=== PATIENT | male | born 1935 | race Caucasian/White ===

== ENCOUNTER 2017-08-19 16:48 | Observation (INO) ==
[2017-08-20] MEDS ORDERED: Famotidine PF Inj 20 MG/2 ML Vial ONE (23:18)
[2017-08-21] MEDS ORDERED: Benzonatate 100 MG Capsule PO PRN (03:06)
[2017-08-21] MEDS ORDERED: Naloxone Inj 0.4 MG/ML Vial IV.PUSH PRN (03:11)
--- NOTE | 2017-08-21 09:01 | P.PN ---
Subjective Interval history: Follow up for hematemesis, bronchitis. The patient is quite confused this morning. He states he doesn't know why he is still here. Had thorough discussion regarding his hematemesis and hemoccult positive stools, patient then remembers he vomited blood. He denies any further hematemesis. He is unable to recall his last BM. Denies any abdominal pain. Denies any lightheadedness/dizziness, chest pain, shortness of breath. Physical Exam Vital signs: Vital Signs 08/21/17 04:06 08/21/17 07:58 Temperature 97.9 F 97.6 F Pulse Rate 70 76 Respiratory Rate 16 16 Blood Pressure 168/73 H 156/77 H Pulse Oximetry 98 Intake & Output 08/20/17 08/21/17 08/21/17 18:59 06:59 18:59 Output Total 1200 / 1200 Balance -1200 / -1200 Weight 80 kg Output: Urine 1200 / 1200 Other: # Voids 3 Narrative: GENERAL: Well-nourished, well-developed pleasant elderly male patient in NAD. Confused. Coughing throughout exam. SKIN: Warm and dry. No rash. HEENT: Normocephalic. Atraumatic. Pupils equal and round. Mucous membranes pink and moist. CARDIOVASCULAR: Regular rate and rhythm. No murmur appreciated. RESPIRATORY: No accessory muscle use. Clear to auscultation. Breath sounds equal bilaterally. GASTROINTESTINAL: Abdomen soft, non-tender, nondistended. Normoactive bowel sounds x4. MUSCULOSKELETAL: No obvious deformities. Extremities without clubbing, cyanosis , or edema. NEUROLOGICAL: Awake and alert. No obvious cranial nerve deficits. Motor grossly within normal limits. Moving all extremities spontaneously. Normal speech. PSYCHIATRIC: Appropriate mood and affect; insight and judgment limited. Results - Labs CBC & Chem 7: 08/20/17 12:30 08/20/17 06:57 Labs: Laboratory Results - last 24 hr 08/19/17 08/19/17 08/19/17 13:40 13:40 14:30 WBC 9.7 RBC 5.47 Hgb 15.9 Hct 46.8 MCV 85.6 MCH 29.0 MCHC 33.9 RDW 14.4 Plt Count 177 MPV 8.1 Neut % (Auto) 83.3 H Lymph % (Auto) 8.5 L [place] % (Auto) 7.6 Eos % (Auto) 0.3 Baso % (Auto) 0.3 Neut # (Auto) 8.1 H Lymph # (Auto) 0.8 L [place] # (Auto) 0.7 Eos # (Auto) 0.0 Baso # (Auto) 0.0 CBC Comment DIFF FINAL Sodium 141 Potassium 3.8 Chloride 105 Carbon Dioxide 27.4 Anion Gap 9 BUN 29 H Creatinine 1.08 Estimated GFR 65 L Random Glucose 104 Calcium 9.0 Total Bilirubin 0.8 AST 15 ALT 20 Alkaline Phosphatase 60 Total Protein 7.5 Albumin 3.7 Lipase 167 Urine Color Andie Urine Turbidity HAZY H Urine pH 5.0 Ur Specific [place] 1.026 Urine Protein 30 H Urine Glucose (UA) 50 Urine Ketones TRACE H Urine Occult Blood SMALL H Urine Nitrite NEG Urine Bilirubin NEG Urine Urobilinogen 4.0 OR GREATER H Ur Leukocyte Esterase NEG Urine RBC 2 Urine WBC 2 Ur Squamous Epith Cells <1 Ur Transition Epith Cell <1 Calcium Oxalate Crystal OCC H Micro UA Comment CULT NOT INDICATED 08/19/17 08/20/17 08/20/17 21:05 06:57 06:57 WBC 10.3 RBC 5.17 Hgb 14.9 14.6 Hct 45.0 43.9 MCV 84.8 MCH 28.2 MCHC 33.2 RDW 14.3 Plt Count 154 MPV 7.9 Neut % (Auto) 79.7 H Lymph % (Auto) 11.9 Brule % (Auto) 7.2 Eos % (Auto) 0.8 Baso % (Auto) 0.4 Neut # (Auto) 8.2 H Lymph # (Auto) 1.2 Brule # (Auto) 0.7 Eos # (Auto) 0.1 Baso # (Auto) 0.0 CBC Comment DIFF FINAL Sodium 141 Potassium 4.1 Chloride 110 H Carbon Dioxide 22.9 Anion Gap 8 BUN 20 H Creatinine 0.73 Estimated GFR 103 Random Glucose 93 Calcium 8.0 L D Total Bilirubin AST ALT Alkaline Phosphatase Total Protein Albumin Lipase Urine Color Urine Turbidity Urine pH Ur Specific [place] Urine Protein Urine Glucose (UA) Urine Ketones Urine Occult Blood Urine Nitrite Urine Bilirubin Urine Urobilinogen Ur Leukocyte Esterase Urine RBC Urine WBC Ur Squamous Epith Cells Ur Transition Epith Cell Calcium Oxalate Crystal Micro UA Comment 08/20/17 12:30 WBC RBC Hgb 15.2 Hct 45.3 MCV MCH MCHC RDW Plt Count MPV Neut % (Auto) Lymph % (Auto) Brule % (Auto) Eos % (Auto) Baso % (Auto) Neut # (Auto) Lymph # (Auto) Brule # (Auto) Eos # (Auto) Baso # (Auto) CBC Comment Sodium Potassium Chloride Carbon Dioxide Anion Gap BUN Creatinine Estimated GFR Random Glucose Calcium Total Bilirubin AST ALT Alkaline Phosphatase Total Protein Albumin Lipase Urine Color Urine Turbidity Urine pH Ur Specific [place]ha Urine Protein Urine Glucose (UA) Urine Ketones Urine Occult Blood Urine Nitrite Urine Bilirubin Urine Urobilinogen Ur Leukocyte Esterase Urine RBC Urine WBC Ur Squamous Epith Cells Ur Transition Epith Cell Calcium Oxalate Crystal Micro UA Comment - Imaging Imaging: Last Impressions Chest X-Ray 08/19/17 1336 Signed Impressions: CONCLUSION: Minimal parental changes laterally left lung nonspecific. Early Inflammatory pr ocess would be a consideration. Assessment and Plan - Plan 81-year-old male with history of Alzheimer's dementia, presents with hematemesis 2 Hematemesis: Possible GI bleed. History of esophageal strictures. -Monitor serial H&H, hemoglobin stable at 14.6 -Given IV Pepcid bid -Stool hemoccult positive -Consult GI, plan for EGD on Tuesday 08/22 Acute bronchitis: Patient with ongoing cough -CXR reviewed, shows some inflammatory changes at the left lung -Give course of antibiotics with Levaquin 500mg daily x7days given ongoing cough and possibly early pneumonia on CXR -outpatient f/up with Dr. Mckeon -Yumiko Riley prn -cough improving Alzheimer's Dementia: chronic -continue patient's Aricept DVT Prophylaxis: teds/SCDs; avoid chemoprophylaxis with hematemesis Discharge Planning: Discharge pending EGD tomorrow.
[2017-08-21] MEDS: Pantoprazole Sodium 20 MG DR Tablet PO SCH (09:48)
[2017-08-21] MEDS: amLODIPine 5 MG Tablet PO SCH (09:48)
[2017-08-21] MEDS: levoFLOXacin 500 MG Tablet PO SCH (09:48)
[2017-08-21] MEDS: Polyethylene Glycol 3350 17 GM Packet PO SCH (09:49)
--- NOTE | 2017-08-21 15:09 | P.PNGI ---
Subjective Interval history: Patient is resting in his room but gets up at times ambulating Some altered mental status which seems to be his norm secondary to dementia No nausea vomiting diarrhea or abdominal pain Current hemoglobin 15.2 <Caren Fish - Last Filed: 08/21/17 15:09> Physical Exam Vital signs: Vital Signs 08/21/17 04:06 08/21/17 07:58 08/21/17 12:00 Temperature 97.9 F 97.6 F 97.4 F L Pulse Rate 70 76 72 Respiratory Rate 16 16 12 Blood Pressure 168/73 H 156/77 H 174/79 H Pulse Oximetry 98 98 Intake & Output 08/20/17 08/21/17 08/21/17 18:59 06:59 18:59 Output Total 1200 / 1200 Balance -1200 / -1200 Weight 80 kg Output: Urine 1200 / 1200 Other: # Voids 3 - Constitutional no acute distress - Routine HEENT Exam Head: Present: normocephalic, atraumatic Eye: Present: EOMI ENT: Present: mucous membranes moist - Routine Neck Exam Present: supple - Routine Respiratory Exam Present: accessory muscle use (No obvious rhonchi or wheezing) - Routine Cardiovascular Exam Present: RRR - Routine Abdominal Exam Present: soft, normoactive bowel sounds - Routine Extremities Exam Present: full ROM (Slim body build ambulates without any issues) - Routine Skin Exam Present: intact, dry (Mild paleness) - Routine Neurological Exam Present: alert (Awake answers simple questions but not sure where he is or current situation) - Detailed Neurological Exam: Coma Scale Eye Opening: Spontaneous Verbal Response: Confused (Non-anxious) <Caren Fish - Last Filed: 08/21/17 15:09> Vital signs: Vital Signs 08/21/17 04:06 08/21/17 07:58 08/21/17 12:00 Temperature 97.9 F 97.6 F 97.4 F L Pulse Rate 70 76 72 Respiratory Rate 16 16 12 Blood Pressure 168/73 H 156/77 H 174/79 H Pulse Oximetry 98 98 Intake & Output 08/20/17 08/21/17 08/21/17 18:59 06:59 18:59 Output Total 1200 / 1200 Balance -1200 / -1200 Weight 80 kg Output: Urine 1200 / 1200 Other: # Voids 3 <Debo Elizalde - Last Filed: 08/21/17 16:56> Results - Labs CBC & Chem 7: 08/20/17 12:30 08/20/17 06:57 Labs: Laboratory Results - last 24 hr 08/19/17 08/19/17 08/19/17 13:40 13:40 14:30 WBC 9.7 RBC 5.47 Hgb 15.9 Hct 46.8 MCV 85.6 MCH 29.0 MCHC 33.9 RDW 14.4 Plt Count 177 MPV 8.1 Neut % (Auto) 83.3 H Lymph % (Auto) 8.5 L [place] % (Auto) 7.6 Eos % (Auto) 0.3 Baso % (Auto) 0.3 Neut # (Auto) 8.1 H Lymph # (Auto) 0.8 L [place] # (Auto) 0.7 Eos # (Auto) 0.0 Baso # (Auto) 0.0 CBC Comment DIFF FINAL Sodium 141 Potassium 3.8 Chloride 105 Carbon Dioxide 27.4 Anion Gap 9 BUN 29 H Creatinine 1.08 Estimated GFR 65 L Random Glucose 104 Calcium 9.0 Total Bilirubin 0.8 AST 15 ALT 20 Alkaline Phosphatase 60 Total Protein 7.5 Albumin 3.7 Lipase 167 Urine Color Andie Urine Turbidity HAZY H Urine pH 5.0 Ur Specific [place] 1.026 Urine Protein 30 H Urine Glucose (UA) 50 Urine Ketones TRACE H Urine Occult Blood SMALL H Urine Nitrite NEG Urine Bilirubin NEG Urine Urobilinogen 4.0 OR GREATER H Ur Leukocyte Esterase NEG Urine RBC 2 Urine WBC 2 Ur Squamous Epith Cells <1 Ur Transition Epith Cell <1 Calcium Oxalate Crystal OCC H Micro UA Comment CULT NOT INDICATED 08/19/17 08/20/17 08/20/17 21:05 06:57 06:57 WBC 10.3 RBC 5.17 Hgb 14.9 14.6 Hct 45.0 43.9 MCV 84.8 MCH 28.2 MCHC 33.2 RDW 14.3 Plt Count 154 MPV 7.9 Neut % (Auto) 79.7 H Lymph % (Auto) 11.9 [place] % (Auto) 7.2 Eos % (Auto) 0.8 Baso % (Auto) 0.4 Neut # (Auto) 8.2 H Lymph # (Auto) 1.2 [place] # (Auto) 0.7 Eos # (Auto) 0.1 Baso # (Auto) 0.0 CBC Comment DIFF FINAL Sodium 141 Potassium 4.1 Chloride 110 H Carbon Dioxide 22.9 Anion Gap 8 BUN 20 H Creatinine 0.73 Estimated GFR 103 Random Glucose 93 Calcium 8.0 L D Total Bilirubin AST ALT Alkaline Phosphatase Total Protein Albumin Lipase Urine Color Urine Turbidity Urine pH Ur Specific [place] Urine Protein Urine Glucose (UA) Urine Ketones Urine Occult Blood Urine Nitrite Urine Bilirubin Urine Urobilinogen Ur Leukocyte Esterase Urine RBC Urine WBC Ur Squamous Epith Cells Ur Transition Epith Cell Calcium Oxalate Crystal Micro UA Comment 08/20/17 12:30 WBC RBC Hgb 15.2 Hct 45.3 MCV MCH MCHC RDW Plt Count MPV Neut % (Auto) Lymph % (Auto) [place] % (Auto) Eos % (Auto) Baso % (Auto) Neut # (Auto) Lymph # (Auto) [place] # (Auto) Eos # (Auto) Baso # (Auto) CBC Comment Sodium Potassium Chloride Carbon Dioxide Anion Gap BUN Creatinine Estimated GFR Random Glucose Calcium Total Bilirubin AST ALT Alkaline Phosphatase Total Protein Albumin Lipase Urine Color Urine Turbidity Urine pH Ur Specific [place] Urine Protein Urine Glucose (UA) Urine Ketones Urine Occult Blood Urine Nitrite Urine Bilirubin Urine Urobilinogen Ur Leukocyte Esterase Urine RBC Urine WBC Ur Squamous Epith Cells Ur Transition Epith Cell Calcium Oxalate Crystal Micro UA Comment <Caren Fish - Last Filed: 08/21/17 15:09> - Labs CBC & Chem 7: 08/20/17 12:30 08/20/17 06:57 Labs: Laboratory Results - last 24 hr 08/19/17 08/19/17 08/19/17 13:40 13:40 14:30 WBC 9.7 RBC 5.47 Hgb 15.9 Hct 46.8 MCV 85.6 MCH 29.0 MCHC 33.9 RDW 14.4 Plt Count 177 MPV 8.1 Neut % (Auto) 83.3 H Lymph % (Auto) 8.5 L [place] % (Auto) 7.6 Eos % (Auto) 0.3 Baso % (Auto) 0.3 Neut # (Auto) 8.1 H Lymph # (Auto) 0.8 L [place] # (Auto) 0.7 Eos # (Auto) 0.0 Baso # (Auto) 0.0 CBC Comment DIFF FINAL Sodium 141 Potassium 3.8 Chloride 105 Carbon Dioxide 27.4 Anion Gap 9 BUN 29 H Creatinine 1.08 Estimated GFR 65 L Random Glucose 104 Calcium 9.0 Total Bilirubin 0.8 AST 15 ALT 20 Alkaline Phosphatase 60 Total Protein 7.5 Albumin 3.7 Lipase 167 Urine Color Andie Urine Turbidity HAZY H Urine pH 5.0 Ur Specific [place] 1.026 Urine Protein 30 H Urine Glucose (UA) 50 Urine Ketones TRACE H Urine Occult Blood SMALL H Urine Nitrite NEG Urine Bilirubin NEG Urine Urobilinogen 4.0 OR GREATER H Ur Leukocyte Esterase NEG Urine RBC 2 Urine WBC 2 Ur Squamous Epith Cells <1 Ur Transition Epith Cell <1 Calcium Oxalate Crystal OCC H Micro UA Comment CULT NOT INDICATED 08/19/17 08/20/17 08/20/17 21:05 06:57 06:57 WBC 10.3 RBC 5.17 Hgb 14.9 14.6 Hct 45.0 43.9 MCV 84.8 MCH 28.2 MCHC 33.2 RDW 14.3 Plt Count 154 MPV 7.9 Neut % (Auto) 79.7 H Lymph % (Auto) 11.9 [place] % (Auto) 7.2 Eos % (Auto) 0.8 Baso % (Auto) 0.4 Neut # (Auto) 8.2 H Lymph # (Auto) 1.2 [place] # (Auto) 0.7 Eos # (Auto) 0.1 Baso # (Auto) 0.0 CBC Comment DIFF FINAL Sodium 141 Potassium 4.1 Chloride 110 H Carbon Dioxide 22.9 Anion Gap 8 BUN 20 H Creatinine 0.73 Estimated GFR 103 Random Glucose 93 Calcium 8.0 L D Total Bilirubin AST ALT Alkaline Phosphatase Total Protein Albumin Lipase Urine Color Urine Turbidity Urine pH Ur Specific [place] Urine Protein Urine Glucose (UA) Urine Ketones Urine Occult Blood Urine Nitrite Urine Bilirubin Urine Urobilinogen Ur Leukocyte Esterase Urine RBC Urine WBC Ur Squamous Epith Cells Ur Transition Epith Cell Calcium Oxalate Crystal Micro UA Comment 08/20/17 12:30 WBC RBC Hgb 15.2 Hct 45.3 MCV MCH MCHC RDW Plt Count MPV Neut % (Auto) Lymph % (Auto) [place] % (Auto) Eos % (Auto) Baso % (Auto) Neut # (Auto) Lymph # (Auto) [place] # (Auto) Eos # (Auto) Baso # (Auto) CBC Comment Sodium Potassium Chloride Carbon Dioxide Anion Gap BUN Creatinine Estimated GFR Random Glucose Calcium Total Bilirubin AST ALT Alkaline Phosphatase Total Protein Albumin Lipase Urine Color Urine Turbidity Urine pH Ur Specific [place] Urine Protein Urine Glucose (UA) Urine Ketones Urine Occult Blood Urine Nitrite Urine Bilirubin Urine Urobilinogen Ur Leukocyte Esterase Urine RBC Urine WBC Ur Squamous Epith Cells Ur Transition Epith Cell Calcium Oxalate Crystal Micro UA Comment <Debo Elizalde - Last Filed: 08/21/17 16:56> Assessment and Plan (1) Hematemesis Status: Acute Code(s): K92.0 - Hematemesis (2) Hematemesis Status: Acute Code(s): K92.0 - Hematemesis - Plan Hematemesis, day 2 currently denies any problems with vomiting or nausea diet is regular and encourage patient to eat currently there is no family present Altered mental status which appears to be chronic for patient's dementia staff is watching him for his safety and encouraging him to stay in his room Current labs show hemoglobin 15.2, LFTs normal Currently has no nausea vomiting diarrhea unknown constipation but patient states he takes MiraLAX at home Plan Consent for EGD to be done Tuesday Monitor labs N.p.o. at midnight tonight for EGD procedure Further recommendations to follow Supportive care Patient was seen per myself and Dr. Elizalde, note was written on his behalf <Caren Fish - Last Filed: 08/21/17 15:09> (1) Hematemesis Status: Acute Code(s): K92.0 - Hematemesis (2) Hematemesis Status: Acute Code(s): K92.0 - Hematemesis - Plan EGD tomorrow, monitor labs - Attending Attestation The exam, history, and the medical decision-making described in the above note were completed with the assistance of the mid-level provider. I reviewed and agree with the findings presented. I attest that I had a [id number] encounter with the patient on the same day, and personally performed and documented my assessment and findings in the medical record. <Debo Elizalde - Last Filed: 08/21/17 16:56>
[2017-08-21] MEDS: Famotidine PF Inj 20 MG/2 ML Vial IV.PUSH SCH (17:05)
[2017-08-21] MEDS: Sod Chloride 0.9% Inj 1,000 ML IV.SIG SCH ×2 (17:06→17:07)
[2017-08-21] MEDS ORDERED: Montelukast 10 MG Tablet PO SCH (21:00)
[2017-08-22] MEDS ORDERED: Sodium Chlor 0.9% Inj 500 ML IV.SIG SCH (04:00)
[2017-08-22] MEDS ORDERED: Chlorhexidine Gluconate 2% 1 Pack (2 Cloths) TOPICAL SCH (04:00)
--- NOTE | 2017-08-22 08:38 | P.PN ---
Subjective Interval history: Follow up for hematemesis. The patient is pleasantly confused again this morning. Discussed with RN, overnight patient became more confused and paranoid. No further episodes of hematemesis. Patient denies any abdominal pain. Going for EGD today. Physical Exam Vital signs: Vital Signs 08/21/17 12:00 08/21/17 16:00 Temperature 97.4 F L 98.6 F Pulse Rate 72 69 Respiratory Rate 12 15 Blood Pressure 174/79 H 160/84 H Pulse Oximetry 98 97 Intake & Output 08/21/17 08/22/17 08/22/17 18:59 06:59 18:59 Intake Total 480 / 480 Output Total 1200 / 1200 Balance -720 / -720 Intake: Oral 480 / 480 Output: Urine 1200 / 1200 Other: # Voids 3 Date of Last Bowel Movement 08/21/17 # Bowel Movements 1 Narrative: GENERAL: Well-nourished, well-developed pleasant elderly male patient in NAD. Confused. SKIN: Warm and dry. No rash. HEENT: Normocephalic. Atraumatic. Pupils equal and round. Mucous membranes pink and moist. CARDIOVASCULAR: Regular rate and rhythm. No murmur appreciated. RESPIRATORY: No accessory muscle use. Clear to auscultation. Breath sounds equal bilaterally. GASTROINTESTINAL: Abdomen soft, non-tender, nondistended. Normoactive bowel sounds x4. MUSCULOSKELETAL: No obvious deformities. Extremities without clubbing, cyanosis , or edema. NEUROLOGICAL: Awake and alert. No obvious cranial nerve deficits. Motor grossly within normal limits. Moving all extremities spontaneously. Normal speech. PSYCHIATRIC: Slightly anxious mood; insight and judgment limited. Results - Labs CBC & Chem 7: 08/20/17 12:30 08/20/17 06:57 Assessment and Plan - Plan 81-year-old male with history of Alzheimer's dementia, presents with hematemesis 2 Hematemesis: Suspected GI bleed. History of esophageal strictures. -Monitor serial H&H, hemoglobin stable at 15.2 -Given IV Pepcid bid -Stool hemoccult positive -Consult GI, plan for EGD today 08/22 Acute bronchitis: Patient with ongoing cough -CXR reviewed, shows some inflammatory changes at the left lung -Give course of antibiotics with Levaquin 500mg daily x7days given ongoing cough and possibly early pneumonia on CXR -outpatient f/up with Dr. Mike Riley prn -cough much improved Alzheimer's Dementia: chronic -continue patient's Aricept DVT Prophylaxis: teds/SCDs; avoid chemoprophylaxis with hematemesis Discharge Planning: Discharge pending EGD today and GI clearance.
[2017-08-22] MEDS: amLODIPine 5 MG Tablet PO SCH (09:11)
[2017-08-22] MEDS: Pantoprazole Sodium 20 MG DR Tablet PO SCH (09:12)
[2017-08-22] MEDS: levoFLOXacin 500 MG Tablet PO SCH (09:12)
[2017-08-22] MEDS: Sod Chloride 0.9% Inj 1,000 ML IV.SIG SCH ×2 (09:14→10:02)
[2017-08-22] MEDS: Famotidine PF Inj 20 MG/2 ML Vial IV.PUSH SCH ×3 (09:14→17:38)
[2017-08-22] MEDS: Polyethylene Glycol 3350 17 GM Packet PO SCH (09:14)
--- NOTE | 2017-08-22 10:40 | ECG ---
Date Performed: 08/21/2017 Time Performed: 16:33:15 PTAGE: 81 years EKG: Sinus rhythm MINIMAL VOLTAGE CRITERIA FOR LVH, CONSIDER NORMAL VARIANT BORDERLINE ECG NO PREVIOUS TRACING DOCTOR: Andreas Denney Interpretating Date/Time 08/22/2017 10:38:41
--- NOTE | 2017-08-22 15:32 | GIPROC ---
[facility] [address] [facility]. [facility], [address] EGD PROCEDURE REPORT EXAM DATE: 08/22/2017 PATIENT NAME: Maulik Dao MR #: [id number] BIRTHDATE: 1935 ATTENDING: Joelle Sandoval MD ORDER #: [id number] EDITOR: Alfie Benavides and Moriah Diaz STATUS: inpatient INDICATIONS: The patient is a 81 yr old male here for an EGD due to gi bleeding PROCEDURE PERFORMED: EGD w/ biopsy MEDICATIONS: None and Per Anesthesia. TOPICAL ANESTHETIC: none CONSENT: The patient understands the risks and benefits of the procedure and understands that these risks include, but are not limited to: sedation, allergic reaction, infection, perforation and/or bleeding. Alternative means of evaluation and treatment include, among others: physical exam, x-rays, and/or surgical intervention. The patient elects to proceed with this endoscopic procedure. medical equipment was checked for proper function. Hand hygiene and appropriate measures for infection prevention was taken. After the risks, benefits and alternatives of the procedure were thoroughly explained, Informed consent was verified, confirmed and timeout was successfully executed by the treatment team. The patient was anesthetized with topical anesthesia and the Pentax EG-[id number] endoscope was introduced through the mouth and advanced to the second portion of the duodenum. Retroflexed views revealed a hiatal hernia The gastroscope was then slowly withdrawn and removed. Dlaxinfhq-srahht-kdixdy esophagitis distal esophagus -biopsy duodenitis second portion-biopsy duodenal bulb nodule-biopsy. ADVERSE EVENTS: There were no complications. IMPRESSIONS: 1. Jeujmtyhm-lpsxrb-cybqrt esophagitis distal esophagus -biopsy duodenitis second portion-biopsy duodenal bulb nodule-biopsy 2. Retroflexed views revealed a hiatal hernia RECOMMENDATIONS: 1. Await biopsy results. Biopsy results will not be ready for 7-10 days. If you don't hear from us in two weeks, call our office for biopsy results. 2. Anti-reflux regimen 3. Continue PPI 4. Start PPI PATIENT CONDITION: stable DISPOSITION: Inpatient REPEAT EXAM: Return 1 year EGD Joelle Sandoval MD eSigned: Joelle Sandoval MD 08/22/2017 3:32 PM cc: PATIENT NAME: Maulik Dao MR#: [id number]
--- NOTE | 2017-08-22 16:25 | P.DS ---
Date of admission: 08/19/17 16:49 Primary care physician: [facility] Attending physician on discharge: Christa Jacobo Anticipated date of discharge: 08/22/17 Brief History from admission: Obtained from Admission H&P: 80 years old male with history of Alzheimer's was brought to the hospital by his significant other and a friend complaining of 2 episodes of hematemesis yesterday evening, they described it as described blood as a piece of Burger, dark and chunky. Patient has a history of esophageal stricture for which he sees Dr. Oneal a while ago. Patient denied any nausea not fever chills abdominal pain, denies any family history of stomach cancer or stomach ulcers. He stated he had an upper GI many years ago but it was negative. Patient went to Dr. Cardona follow-up of the adaptive physical education teacher who directed him to come directly to the ER. Big part of the history was obtained from his significant other who told me she had cough and jerking movement while sleeping and Dr. Cardona is planning on doing sleep study and he already did what it sounds like PFT, will obtain the record from Dr. Zuniga's office DS: Diagnosis - Discharge Diagnosis (1) Esophagitis with gastritis Status: Acute (2) Duodenitis Status: Acute (3) Hematemesis Status: Acute DS: Medications - Discharge Medications Prescriptions: amlodipine [Norvasc] 5 mg PO DAILY 30 Days #30 tab levofloxacin 500 mg PO DAILY 5 Days #5 tab pantoprazole [Protonix] 20 mg PO DAILY 30 Days #30 tab DS: Summary Hospital Course: 81-year-old male with history of Alzheimer's dementia, presents with hematemesis 2 Hematemesis: Suspected GI bleed. History of esophageal strictures. Monitor serial H&H, hemoglobin remained stable at 15.2, and no further episodes of hematemesis throughout admission, however hemoccult positive. Given IV Pepcid bid. Consulted GI, performed EG today 08/22, showed gastritis, distal esophagitis , duodenitis; biopsies taken. Recommends PPI. Diet advanced to regular, patient tolerated. Discussed with Dr. Sandoval, cleared for discharge. Outpatient f/up. Acute bronchitis: Patient with ongoing cough. CXR reviewed, shows some inflammatory changes at the left lung. Give course of antibiotics with Levaquin 500mg daily x7days given ongoing cough and possibly early pneumonia on CXR. Outpatient f/up with adaptive physical education teacher Dr. Mckeon. Yumiko Riley prn. Cough much improved. Remained afebrile throughout admission. Stable for discharge. Alzheimer's Dementia: chronic. Continue patient's Aricept. - Time Spent with Patient Total time spent providing and/or coordinating discharge services: Less than 30 minutes Exam Vital signs: Vital Signs 08/21/17 19:15 08/22/17 11:04 08/22/17 15:46 Temperature 97.6 F 98.7 F 96.9 F L Pulse Rate 68 67 66 Respiratory Rate 18 18 16 Blood Pressure 161/87 H 161/87 H 100/61 Pulse Oximetry 97 95 100 Intake & Output 08/21/17 08/22/17 08/22/17 18:59 06:59 18:59 Intake Total 480 / 480 Output Total 1200 / 1200 Balance -720 / -720 Intake: Oral 480 / 480 Output: Urine 1200 / 1200 Other: # Voids 3 Date of Last Bowel Movement 08/21/17 08/21/17 # Bowel Movements 1 Narrative: GENERAL: Well-nourished, well-developed pleasant elderly male patient in NAD. Confused. SKIN: Warm and dry. No rash. HEENT: Normocephalic. Atraumatic. Pupils equal and round. Mucous membranes pink and moist. CARDIOVASCULAR: Regular rate and rhythm. No murmur appreciated. RESPIRATORY: No accessory muscle use. Clear to auscultation. Breath sounds equal bilaterally. GASTROINTESTINAL: Abdomen soft, non-tender, nondistended. Normoactive bowel sounds x4. MUSCULOSKELETAL: No obvious deformities. Extremities without clubbing, cyanosis , or edema. NEUROLOGICAL: Awake and alert. No obvious cranial nerve deficits. Motor grossly within normal limits. Moving all extremities spontaneously. Normal speech. PSYCHIATRIC: Slightly anxious mood; insight and judgment limited. Results Procedures completed during hospitalization: 08/22/17 - EGD by Dr. Sandoval showed distal esophagitis, gastritis, duodenitis; multiple biopsies taken. Pending studies at discharge: Biopsies. Discharge Plan - Discharge Disposition Patient Disposition: Discharge Home - Discharge Condition Condition: Stable - Discharge Order Discharge Orders: Discharge Order (Routine); Ordered 08/22/17 Ordered By: Ria Richardson - Discharge Details Anticipated Discharge Date: 08/22/17 Discharge Comment: Ok to discharge if tolerating oral intake. F/up with GI for biopsy results. - Physicians Team Primary Care Provider: [facility] Attending Provider: Christa Jacobo Other Providers: Debo Elizalde MD - Rxs /Orders / Referrals /Forms Prescriptions: New amlodipine [Norvasc] 5 mg Tablet 5 mg PO DAILY 30 Days Qty: 30 RF: 0 levofloxacin 500 mg Tablet 500 mg PO DAILY 5 Days Qty: 5 RF: 0 pantoprazole [Protonix] 20 mg Tablet,Delayed Release (Dr/Ec) 20 mg PO DAILY 30 Days Qty: 30 RF: 0 Continue benzonatate 100 mg Capsule 200 mg PO TID PRN (Reason: Cough) cetirizine 10 mg Tablet,Chewable 10 mg PO DAILY donepezil 10 mg Tablet 10 mg PO HS montelukast 10 mg Tablet 10 mg PO HS Referrals: Joelle Sandoval MD [Physician] - See Instructions [facility] [Primary Care Provider] - See Instructions Mike Mckeon MD [Physician] - See Instructions - Discharge Instructions Print Language: Icelandic - Post Discharge Care Plan Care Plan Goals: Your Health Problems: Goals to Promote Your Health: * To prevent worsening of your condition * To maintain your health at the optimal level Directions to Meet Your Goals: * Take your medications as prescribed * Follow your dietary instruction * Follow activity as directed * Keep your appointments as scheduled * Take your immunizations and boosters as scheduled * If your symptoms worsen call your PCP * If no PCP go to Urgent Care or Emergency Room Smoking is dangerous to your health. Avoid second hand smoke. You may reach the 24-hour crisis hotline for domestic abuse at .
[2017-08-22] MEDS ORDERED: Phenylephrine/NS 1000 MCG/10ML Syringe IV.PUSH ONE (18:51)
[2017-08-22] MEDS ORDERED: Lidocaine PF 1% Inj 5 ML Syringe INFILTRATN ONE (18:51)
[2017-08-23 12:49] VITALS: BP 142/80; PULSE 69; RESP 20; TEMP 98.7; O2SAT 96
== END 2017-08-22 18:52 | disposition home or self-care (01) ==
LOC: NEPHCDU 16:48
PROVIDERS: ADMIT Hospitalist; ATTEND Hospitalist

== ENCOUNTER 2017-08-24 00:25 | Inpatient (IN) ==
--- NOTE | 2017-08-24 01:15 | ED ---
HPI General Stated complaint: Eval/BA/[facility] Office Time Seen by Provider: 08/24/17 01:08 Source: patient and police Mode of arrival: ambulatory Limitations: no limitations and altered mental status History of Present Illness HPI narrative: 81-year-old male with history of dementia, recent GI bleed, hypertension, presents emergency department under [place] act for psychiatric evaluation. Patient has been increasingly paranoid over the last couple of weeks. He tells me that he has Alzheimer's and sometimes he feels like it gets the best of him. He tells me he does not necessarily think somebody is out to get him he just is uncertain of things all the time. He denies any recent trauma however police are concerned about an abrasion on the posterior scalp. Patient states that his girlfriend Ronel takes care of all of his medications and make sure he gets them on time. His primary care is Dr. Lagunas. Patient denies any acute medical needs at this time. Related Data Home Medications Medication Instructions Recorded Confirmed benzonatate 200 mg PO TID PRN 08/20/17 08/20/17 cetirizine 10 mg PO DAILY 08/20/17 08/20/17 donepezil 10 mg PO HS 08/20/17 08/20/17 montelukast 10 mg PO HS 08/20/17 08/20/17 Previous Rx's Medication Instructions Recorded amlodipine [Norvasc] 5 mg PO DAILY 30 Days #30 tab 08/22/17 levofloxacin 500 mg PO DAILY 5 Days #5 tab 08/22/17 pantoprazole [Protonix] 20 mg PO DAILY 30 Days #30 tab 08/22/17 Allergies Allergy/AdvReac Type Severity Reaction Status Date / Time No Known Allergies Allergy Unknown Uncoded 08/19/17 12:58 Review of Systems Except as stated in HPI: all other systems reviewed are negative PMFSH History History Provided By: Patient and Law Enforcement Social History Social History Substance History: No History of Abuse Recent Travel in [facility] within the Last 8 Weeks: No Recent Out of Country Travel within the Last 8 Weeks: No Exam Narrative Exam Narrative: GENERAL: Well-nourished elderly male patient, intermittently pleasantly confused, but in no acute distress SKIN: Focused skin assessment warm/dry. HEAD: Atraumatic. Normocephalic. EYES: Pupils equal and round. No scleral icterus. No injection or drainage. ENT: No nasal bleeding or discharge. Mucous membranes pink and moist. NECK: Trachea midline. No JVD. CARDIOVASCULAR: Regular rate and rhythm. No murmur appreciated. RESPIRATORY: No accessory muscle use. Clear to auscultation. Breath sounds equal bilaterally. GASTROINTESTINAL: Abdomen soft, non-tender, nondistended. Hepatic and splenic margins not palpable. MUSCULOSKELETAL: No obvious deformities. No clubbing. No cyanosis. No edema. NEUROLOGICAL: Awake and alert. No obvious cranial nerve deficits. Motor grossly within normal limits. Normal speech. PSYCHIATRIC: Appropriate mood and affect; insight and judgment normal. Course Initial Documented Vital Signs Temperature 98.6 F 08/24/17 00:46 Pulse Rate 93 H 08/24/17 00:46 Respiratory Rate 18 08/24/17 00:46 Blood Pressure 122/74 08/24/17 00:46 Pulse Oximetry 98 08/24/17 00:46 Last Documented Vital Signs Temperature 98.6 F 08/24/17 00:46 Pulse Rate 93 H 08/24/17 00:46 Respiratory Rate 18 08/24/17 00:46 Blood Pressure 122/74 08/24/17 00:46 Pulse Oximetry 98 08/24/17 00:46 Medical Decision Making OZIEL Attestation OZIEL supervised visit: No MDM Narrative Medical decision making narrative: 81-year-old male presents emergency department under [place] act for psychiatric evaluation. Patient appears well. He is intermittently confused. He has concerned about his own condition and fairly recent diagnosis of Alzheimer's per his report. Lab work is reviewed and without acute concern. Patient is medically cleared to undergo psychiatric screening for further evaluation and disposition. Differential Diagnosis Differential Diagnosis: Alzheimer disease versus dementia versus electrolyte abnormality versus normal exam Medical Records Medical records reviewed: Yes I reviewed the patient's medical records. Lab Data Result diagrams: 08/24/17 01:16 08/24/17 01:16 Lab Results 08/24/17 08/24/17 Range/Units 01:16 01:16 WBC 12.7 H (4.0-11.0) th/mm3 RBC 5.82 (4.50-5.90) mil/mm3 Hgb 16.4 (13.0-17.0) gm/dL Hct 49.7 (39.0-51.0) % MCV 85.3 (80.0-100.0) fL MCH 28.2 (27.0-34.0) pg MCHC 33.0 (32.0-36.0) % RDW 14.7 (11.6-17.2) % Plt Count 220 (150-450) th/mm3 MPV 7.8 (7.0-11.0) fL Neut % (Auto) 84.6 H (16.0-70.0) % Lymph % (Auto) 8.1 L (9.0-44.0) % [place] % (Auto) 6.8 (0.0-8.0) % Eos % (Auto) 0.3 (0.0-4.0) % Baso % (Auto) 0.2 (0.0-2.0) % Neut # (Auto) 10.7 H (1.8-7.7) th/mm3 Lymph # (Auto) 1.0 (1.0-4.8) th/mm3 [place] # (Auto) 0.9 (0.0-0.9) th/mm3 Eos # (Auto) 0.0 (0.0-0.4) th/mm3 Baso # (Auto) 0.0 (0.0-0.2) th/mm3 WBC Differential . Differential Comment Auto diff final Sodium 140 (136-145) meq/L Potassium 4.1 (3.5-5.1) meq/L Chloride 105 (98-107) meq/L Carbon Dioxide 19.3 L (21.0-32.0) meq/L Anion Gap 16 H (5-15) meq/L BUN 30 H (7-18) mg/dL Creatinine 1.32 H (0.60-1.30) mg/dL Estimated GFR 52 L (>89) mL/min Random Glucose 108 H (74-106) mg/dL Calcium 9.8 (8.5-10.1) mg/dL Total Bilirubin 0.9 (0.2-1.0) mg/dL AST 8 L (15-37) U/L ALT 18 (12-78) U/L Alkaline Phosphatase 63 (45-117) U/L Total Protein 7.7 (6.4-8.2) g/dL Albumin 3.8 (3.4-5.0) g/dL TSH 0.801 (0.358-3.740) uIU/mL Serum Alcohol Less than 3 (0-5) mg/dL Imaging Data Radiologist's impression: ITS Impressions Head CT 08/24/17 01:09 CONCLUSION: 1. Moderate atrophy. 2. No acute findings in the brain. Discharge Plan Discharge Disposition Patient Disposition: 30 Still Patient Discharge Condition Condition: Stable Discharge Details Discharge Problem: Dementia Physicians Team ED Provider: [facility] Midlevel Provider: María Elena Singh Primary Care Provider: UNKNOWN, Rxs /Orders / Referrals /Forms Prescriptions: No Action donepezil 10 mg Tablet 10 mg PO HS RF: 0 benzonatate 100 mg Capsule 200 mg PO TID PRN (Reason: Cough) RF: 0 montelukast 10 mg Tablet 10 mg PO HS RF: 0 cetirizine 10 mg Tablet,Chewable 10 mg PO DAILY RF: 0 amlodipine [Norvasc] 5 mg Tablet 5 mg PO DAILY 30 Days Qty: 30 RF: 0 pantoprazole [Protonix] 20 mg Tablet,Delayed Release (Dr/Ec) 20 mg PO DAILY 30 Days Qty: 30 RF: 0 levofloxacin 500 mg Tablet 500 mg PO DAILY 5 Days Qty: 5 RF: 0 Status ED Status: Medically Cleared
[2017-08-24 01:42] LABS: Baso % (Auto) 0.2 % (0.0-2.0); Eos % (Auto) 0.3 % (0.0-4.0); Hematocrit 49.7 % (39.0-51.0); Hemoglobin 16.4 gm/dL (13.0-17.0); Lymph % (Auto) 8.1 % (9.0-44.0); Mean Corpuscular Hemoglobin 28.2 pg (27.0-34.0); Mean Corpuscular Volume 85.3 fL (80.0-100.0); Mean Platelet Volume 7.8 fL (7.0-11.0); Mono # (Auto) 0.9 th/mm3 (0.0-0.9); Mono % (Auto) 6.8 % (0.0-8.0); Neut # (Auto) 10.7 th/mm3 (1.8-7.7); Neut % (Auto) 84.6 % (16.0-70.0); Platelet Count 220 th/mm3 (150-450); Red Blood Count 5.82 mil/mm3 (4.50-5.90); Red Cell Distribution Width 14.7 % (11.6-17.2); White Blood Count 12.7 th/mm3 (4.0-11.0)
[2017-08-24 02:08] LABS: Alanine Aminotransferase 18 U/L (12-78); Albumin 3.8 g/dL (3.4-5.0); Anion Gap 16 meq/L (5-15); Aspartate Aminotransferase 8 U/L (15-37); Blood Urea Nitrogen 30 mg/dL (7-18); Calcium 9.8 mg/dL (8.5-10.1); Carbon Dioxide 19.3 meq/L (21.0-32.0); Chloride 105 meq/L (98-107); Glomerular Filtration Rate 52 mL/min (>89); Glucose,Random 108 mg/dL (74-106); Potassium 4.1 meq/L (3.5-5.1); Sodium 140 meq/L (136-145)
[2017-08-24 02:19] LABS: Alkaline Phosphatase 63 U/L (45-117); Thyroid Stimulating Hormone 0.801 uIU/mL (0.358-3.740); Total Protein 7.7 g/dL (6.4-8.2)
[2017-08-24] MEDS ORDERED: Aluminum/Magnesium/Simethacone Susp 30 ML UDC PO PRN (12:59)
[2017-08-24] MEDS ORDERED: CETIRIZINE 10 MG PO SCH (13:15)
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
--- NOTE | 2017-08-24 14:07 | P.PNPSY ---
Patient has an advanced directive and a living will. His POA states that she provided them to the hospital however, it has not been scanned in yet that I can see. I did not determine what interventions if any he desires. The next time we speak with her need to clarify his code status. Thank you.
[2017-08-24] MEDS: amLODIPine 5 MG Tablet PO SCH (16:37)
[2017-08-24] MEDS: Benzonatate 100 MG Capsule PO PRN (16:37)
[2017-08-24] MEDS: levoFLOXacin 500 MG Tablet PO SCH (16:38)
[2017-08-24] MEDS: Pantoprazole Sodium 20 MG DR Tablet PO SCH (16:38)
[2017-08-24 19:34] LABS: Amphetamine Screen,Urine Neg (Neg); Barbiturate Screen,Urine Neg (Neg); Cannabinoid Screen,Urine Neg (Neg); Cocaine Screen,Urine Neg (Neg); Opiate Screen,Urine Neg (Neg)
[2017-08-24] MEDS: Montelukast 10 MG Tablet PO SCH (20:59)
[2017-08-25] MEDS: levoFLOXacin 500 MG Tablet PO SCH (08:44)
[2017-08-25] MEDS: amLODIPine 5 MG Tablet PO SCH (08:44)
[2017-08-25] MEDS: Pantoprazole Sodium 20 MG DR Tablet PO SCH (08:44)
[2017-08-25 11:04] LABS: Calcium 9.7 mg/dL (8.5-10.1); Carbon Dioxide 26.6 meq/L (21.0-32.0); Potassium 3.7 meq/L (3.5-5.1)
[2017-08-25 11:07] LABS: Chol/HDL Ratio 3.63 Ratio; HDL Cholesterol 42.6 mg/dL (40.0-60.0)
[2017-08-25] MEDS ORDERED: Aluminum/Magnesium/Simethacone Susp 30 ML UDC PO PRN (11:09)
[2017-08-25] MEDS ORDERED: Acetaminophen 325 MG Tablet PO PRN (11:09)
[2017-08-25] MEDS ORDERED: Bisacodyl 10 MG Supp RECTAL PRN (11:09)
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
--- NOTE | 2017-08-25 14:28 | ECG ---
Date Performed: 08/25/2017 Time Performed: 13:11:35 PTAGE: 81 years EKG: Baseline artifact present Sinus rhythm NORMAL ECG No significant change from prior electrocardiogram. PREVIOUS TRACING : 08/21/2017 16.33 DOCTOR: Kaleb Stephenson Interpretating Date/Time 08/25/2017 14:27:38
[2017-08-25] MEDS ORDERED: Polyethylene Glycol 3350 17 GM Packet PO ONE (18:15)
--- NOTE | 2017-08-25 18:22 | P.CON ---
History of Present Illness Service: Hospitalist service Consult date: 08/25/17 Requesting Physician: Juan Carlos Antunez Reason for Consult: Assist with medical management Primary Care Provider: UNKNOWN History of Present Illness: This is a 81-year-old male with past medical history significant for Alzheimer' s dementia, hypertension, recent hospitalization 08/19/17 to 08/22/17 for episodes of hematemesis s/p EGD revealing distal esophagitis, gastritis and duodenitis who was admitted under Shirley act to inpatient psychiatry for worsening paranoia. Hospitalist services have been consulted to assist with medical management. Patient seen and examined. Patient reports constipation states he has not had a bowel movement in 3 days. He denies any other acute medical complaints. He denies any fever chills. He denies any chest pain or shortness of breath. He denies any nausea or vomiting or abdominal pain. He denies any urinary difficulties. Discussed with nursing staff, no acute medical issues noted Review of Systems All other systems reviewed negative except as stated in [facility] PMFSH - History History Provided By: Patient - Medical History Medical History: Medical History (Last Updated 08/25/17 @ 18:07 by Ely Rodriguez) Alzheimer's dementia Esophagitis Hypertension - Surgical History Surgical History: Surgical History (Last Updated 08/25/17 @ 18:08 by Ely Rodriguez) No history of previous surgery - Family History Family History: Family History (Last Updated 08/25/17 @ 18:08 by Ely Rodriguez) Other Family history reviewed with no changes - Tobacco History Second Hand Smoke Exposure: No Tobacco Use In Past 30 Days: No Smoking Status: Former smoker Smoking End Date: - Alcohol History How Often Do You Have a Drink Containing Alcohol: Monthly or less - Substance Use History Substance History: No History of Abuse - Substance Use Type Alcohol Frequency: 1 or 2 beers per month - Travel History Recent Travel in the [place] Within the Last 8 Weeks: No Recent Travel Out of the Country Within the Last 8 Weeks: No Medications and Allergies Active Medications: Active Medications Acetaminophen (Tylenol) 650 mg PO Q4H PRN PRN Reason: Pain 1-5 or Temp >101F Al Hydrox/Mg Hydrox/Simethicone (Mag-Al Plus Susp Liq) 30 ml PO Q6H PRN PRN Reason: DYSPEPSIA Amlodipine Besylate (Norvasc) 5 mg PO DAILY [facility] Last Admin: 08/25/17 08:44 Dose: 5 mg Benzonatate (Tessalon Perles) 200 mg PO TID PRN PRN Reason: Cough Last Admin: 08/24/17 16:37 Dose: 200 mg Bisacodyl (Dulcolax Supp) 10 mg RECTAL DAILY PRN PRN Reason: SEVERE CONSITIPATION Cetirizine HCl (Zyrtec) 10 mg PO DAILY [facility] Last Admin: 08/25/17 08:44 Dose: 10 mg Diphenhydramine HCl (Benadryl) 50 mg PO HS PRN PRN Reason: INSOMNIA Hydroxyzine HCl (Atarax) 50 mg PO Q6H PRN PRN Reason: ANXIETY Lactulose (Lactulose Liq) 30 ml PO DAILY PRN PRN Reason: SEVERE CONSITIPATION Levofloxacin (Levaquin) 500 mg PO DAILY [facility] Stop: 08/27/17 09:01 Last Admin: 08/25/17 08:44 Dose: 500 mg Montelukast Sodium (Singulair) 10 mg PO HS [facility] Last Admin: 08/24/17 20:59 Dose: 10 mg Pantoprazole Sodium (Protonix) 20 mg PO DAILY [facility] Last Admin: 08/25/17 08:44 Dose: 20 mg Senna/Docusate Sodium (Holly-Colace) 1 tab PO BID [facility] Sennosides (Senokot) 17.2 mg PO Q12H PRN PRN Reason: Moderate Constipation Allergies Allergy/AdvReac Type Severity Reaction Status Date / Time No Known Allergies Allergy Unknown Uncoded 08/19/17 12:58 Home Medications Medication Instructions Recorded Confirmed Type benzonatate 200 mg PO TID PRN 08/20/17 08/24/17 History cetirizine 10 mg PO DAILY 08/20/17 08/24/17 History donepezil 10 mg PO HS 08/20/17 08/24/17 History montelukast 10 mg PO HS 08/20/17 08/24/17 History Physical Exam Vital signs: Vital Signs 08/24/17 18:00 08/25/17 06:00 08/25/17 16:57 Temperature 97.1 F L 97.6 F 98.0 F Pulse Rate 86 70 81 Respiratory Rate 18 18 18 Blood Pressure 125/76 172/86 H 123/72 Pulse Oximetry 98 96 100 Intake & Output 08/24/17 08/25/17 08/25/17 18:59 06:59 18:59 Intake Total 440 / 440 Balance 440 / 440 Weight 74.7 kg Intake: Oral 440 / 440 Other: Date of Last Bowel Movement 08/22/17 08/22/17 Narrative: GENERAL: This is a well-developed well-nourished elderly male, no acute distress. Awake alert. Witnessed ambulating in the unit without any difficulties. SKIN: Warm and dry. + Benign-appearing hyperkeratotic lesion noted behind the right ear HEAD: Atraumatic. Normocephalic. EYES: Pupils equal and round. No scleral icterus. No injection or drainage. ENT: No nasal bleeding or discharge. Mucous membranes pink and moist. NECK: Trachea midline. No JVD. CARDIOVASCULAR: Regular rate and rhythm. No murmur appreciated. RESPIRATORY: No accessory muscle use. Clear to auscultation. Breath sounds equal bilaterally. GASTROINTESTINAL: Abdomen soft, non-tender, nondistended. Hepatic and splenic margins not palpable. MUSCULOSKELETAL: Extremities without clubbing, cyanosis, or edema. No obvious deformities. NEUROLOGICAL: Awake and alert. No obvious cranial nerve deficits. Motor grossly within normal limits. Able to move all extremities spontaneously. No focal neurologic findings appreciated. Normal speech. PSYCHIATRIC: Appropriate mood and affect; insight and judgment normal. Assessment and Plan - Plan 81-year-old male with past medical history significant for Alzheimer's dementia , hypertension, recent hospitalization 08/19/17 to 08/22/17 for episodes of hematemesis s/p EGD revealing distal esophagitis, gastritis and duodenitis who was admitted under Shirley act to inpatient psychiatry for worsening paranoia. Hospitalist services have been consulted to assist with medical management. Alzheimer's dementia, with behavioral disturbance UDS negative -Management per psychiatric team Leukocytosis, suspect reactive/stress Patient does not appear septic. He is afebrile. Currently on Levaquin for bronchitis. -Repeat CBC to monitor white count TESS Acidosis, resolved Suspect secondary to poor oral intake, dehydration Creatinine improved -Encourage p.o. fluid intake -Avoid nephrotoxic agent -Continue to monitor kidney function as indicated Recent admission for hematemesis s/p EGD showing gastritis and esophagitis History of esophageal stricture status post dilatation -Continue on PPI -Patient will need to follow-up with GI as outpatient Recent diagnosis of bronchitis Patient reports improvement, denies any cough -Continue on Levaquin until completion 08/27/17 -Tessalon Perles as needed Hypertension -Continue patient on Norvasc 5 mg daily -Continue to monitor BP and adjust treatment accordingly -Clonidine as needed Chronic constipation Patient reports no BM 3 days -Continue on stool softener -Give MiraLAX 1 dose -Monitor for BM DVT prophylaxis -Patient is ambulatory Thank you very kindly for this consultation. We will obtain repeat CBC in a.m. and if white count is stable or improved we will likely sign off tomorrow Discussed Condition With: patient and nursing staff
[2017-08-25] MEDS: Senna/Docusate Sodium 8.6/50 MG Tablet PO SCH (20:29)
[2017-08-25] MEDS: Montelukast 10 MG Tablet PO SCH (20:29)
[2017-08-26] MEDS: levoFLOXacin 500 MG Tablet PO SCH (08:48)
[2017-08-26] MEDS: Pantoprazole Sodium 20 MG DR Tablet PO SCH (08:48)
[2017-08-26] MEDS: Senna/Docusate Sodium 8.6/50 MG Tablet PO SCH ×2 (08:48→20:58)
[2017-08-26] MEDS: amLODIPine 5 MG Tablet PO SCH (08:48)
--- NOTE | 2017-08-26 11:37 | P.PN ---
Subjective Interval history: Follow-up on patient with Alzheimer's dementia, hypertension, constipation. Patient seen and examined. Patient denies any new medical complaints. He denies any fever or chills. He denies any chest pain or shortness of breath. He denies any nausea, vomiting or abdominal pain. He has still not had a bowel movement. Discussed with nursing staff who will give dose of lactulose now and consider Dulcolax suppository later if needed. He denies any urinary difficulties. Physical Exam Vital signs: Vital Signs 08/25/17 16:57 08/26/17 06:19 08/26/17 06:20 Temperature 98.0 F 97.9 F 97.9 F Pulse Rate 81 73 73 Respiratory Rate 18 Blood Pressure 123/72 133/73 133/73 Pulse Oximetry 100 95 95 Intake & Output 08/25/17 08/26/17 08/26/17 18:59 06:59 18:59 Intake Total 440 / 440 Balance 440 / 440 Intake: Oral 440 / 440 Other: Date of Last Bowel Movement 08/22/17 08/22/17 08/22/17 Narrative: GENERAL: This is a well-developed well-nourished elderly male, no acute distress. Awake and alert. Ambulating in his room without any difficulties. SKIN: Warm and dry. + Benign-appearing hyperkeratotic lesion noted behind the right ear HEENT: Atraumatic. Normocephalic. EOMI. No scleral icterus. No injection or drainage. No nasal bleeding or discharge. Mucous membranes pink and moist. NECK: Trachea midline. CARDIOVASCULAR: Regular rate and rhythm. No murmur appreciated. RESPIRATORY: No accessory muscle use. Clear to auscultation. Breath sounds equal bilaterally. GASTROINTESTINAL: Abdomen soft, non-tender, nondistended. +BS. MUSCULOSKELETAL: Extremities without clubbing, cyanosis, or edema. No obvious deformities. NEUROLOGICAL: Awake and alert. No obvious cranial nerve deficits. Motor grossly within normal limits. Able to move all extremities spontaneously. No focal neurologic findings appreciated. Normal speech. PSYCHIATRIC: Calm and cooperative Results - Labs CBC & Chem 7: 08/26/17 13:33 08/26/17 13:33 Laboratory Results - last 24 hr 08/25/17 10:03 Hemoglobin A1c 5.0 Assessment and Plan - Plan 81-year-old male with past medical history significant for Alzheimer's dementia , hypertension, recent hospitalization 08/19/17 to 08/22/17 for episodes of hematemesis s/p EGD revealing distal esophagitis, gastritis and duodenitis who was admitted under Shirley act to inpatient psychiatry for worsening paranoia. Hospitalist services have been consulted to assist with medical management. Alzheimer's dementia, with behavioral disturbance UDS negative -Management per psychiatric team Leukocytosis, suspect reactive/stress, resolved Patient does not appear septic. He is afebrile. Currently on Levaquin for bronchitis. -Repeat white count 7.5 TESS Acidosis, resolved Suspect secondary to poor oral intake, dehydration Creatinine improved -Encourage p.o. fluid intake -Avoid nephrotoxic agent -Continue to monitor kidney function as indicated Recent admission for hematemesis s/p EGD showing gastritis and esophagitis History of esophageal stricture status post dilatation -Continue on PPI -Patient will need to follow-up with GI as outpatient Recent diagnosis of bronchitis Patient reports improvement, denies any cough -Continue on Levaquin until completion 08/27/17 -Tessalon Perles as needed Hypertension, chronic, controlled -Continue patient on Norvasc 5 mg daily -Continue to monitor BP and adjust treatment accordingly -Clonidine as needed Chronic constipation Patient reports no BM 4 days -Continue on stool softener. Miralax x 1 dose given yesterday. -Dose of lactulose 1 now. Consider Dulcolax suppository later if needed. -Monitor for BM Benign appearing hyperkeratotic lesion right ear -Recommend patient follow-up with contract writer as outpatient for possible excision. DVT prophylaxis -Patient is ambulatory Patient appears stable from hospitalist standpoint. [facility] will sign off. Please reconsult if needed. Discussed Condition With: Patient and nursing staff
--- NOTE | 2017-08-26 12:23 | P.PNPSY ---
Subjective Chief Complaint: Dementia with aggressive behavior Remarks: Patient seen in day room with floor staff, and nurse Vielka, chart reviewed, patient compliant medication. Patient continues somewhat diffusely confused disoriented but able to shows some focus of conversation. After speaking with patient and I met with patient's longtime girlfriend and 8. She is quite distraught almost hysterical with the fact that when she was changing her bed at home she found some tools that could have been used as weapons inpatient setting of the bed she is somewhat concerned about her own safety at this time. I reassured her patients on the Shirley act him since she is part of returning nothing will be done without her awareness also. We will now order Seroquel 25 mg 3 times daily with her permission Review of Systems All other systems reviewed negative except as stated in HPI Mental Status Examination Appearance: Appropriate Consciousness: Alert Orientation: Person, Place (Quite vague), Date/Time (Quite vague), Situation ( Quite vague) Motor Activity: Other (seated on bed) Speech: Unremarkable Language: Adequate Fund of Knowledge: Poor Attention and Concentration: Inadequate Memory: Impaired Mood: Other (Euthymic to mildly irritable) Affect: Other (Slight increased range and intensity) Thought Process & Associations: Disorganized Thought Content: Delusional Hallucination Type: None (Denies) Delusion Type: Paranoid Suicidal Ideation: No (Denies at this time) Suicidal Plan: No Suicidal Intention: No Homicidal Ideation: No (Denies at this time) Homicidal Plan: No Homicidal Intention: No Insight: Poor Judgment: Poor Assessment and Plan - Assessment (1) Dementia in other diseases classified elsewhere with behavioral disturbance Code(s): F02.81 - Dementia in other diseases classified elsewhere with behavioral disturbance Status: Acute (2) Alzheimer's disease with late onset Code(s): G30.1 - Alzheimer's disease with late onset; F02.80 - Dementia in other diseases classified elsewhere without behavioral disturbance Status: Acute - Plan Plan: Patient continues diffusely confused disoriented Justification for Continued Inpatient Stay: At this time patient would decompensate a place to a lower level of care Discharge Planning: To be determined Request Healthcare Surrogate/Guardian Advocate?: Yes
[2017-08-26] MEDS: QUEtiapine 25 MG Tablet PO SCH ×2 (13:10→17:29)
[2017-08-26 13:53] LABS: Baso % (Auto) 0.5 % (0.0-2.0); Eos # (Auto) 0.1 th/mm3 (0.0-0.4); Hematocrit 45.2 % (39.0-51.0); Hemoglobin 15.1 gm/dL (13.0-17.0); Lymph # (Auto) 1.1 th/mm3 (1.0-4.8); Lymph % (Auto) 15.2 % (9.0-44.0); Mean Corpuscular HGB Conc 33.5 % (32.0-36.0); Mean Corpuscular Hemoglobin 28.6 pg (27.0-34.0); Mean Corpuscular Volume 85.5 fL (80.0-100.0); Mean Platelet Volume 7.6 fL (7.0-11.0); Mono # (Auto) 0.5 th/mm3 (0.0-0.9); Mono % (Auto) 7.1 % (0.0-8.0); Neut # (Auto) 5.7 th/mm3 (1.8-7.7); Neut % (Auto) 76.2 % (16.0-70.0); Platelet Count 184 th/mm3 (150-450); Red Blood Count 5.29 mil/mm3 (4.50-5.90); Red Cell Distribution Width 14.7 % (11.6-17.2); White Blood Count 7.5 th/mm3 (4.0-11.0)
[2017-08-26 14:16] LABS: Calcium 9.1 mg/dL (8.5-10.1); Carbon Dioxide 27.8 meq/L (21.0-32.0); Potassium 4.2 meq/L (3.5-5.1)
--- NOTE | 2017-08-26 15:14 | P.CONPSY ---
Provisional Diagnosis Admission Date: August 24, 2017 13:02 Glennallen I.: Alzheimer's disease with late onset, dementia with behavioral disturbances History of Present Illness Primary Care Provider: UNKNOWN History of Present Illness: The patient is a 81-year-old male with history of dementia, recent GI bleed, hypertension, presents emergency department under Shirley act for psychiatric evaluation. Patient has been increasingly paranoid over the last couple of weeks. He tells me that he has Alzheimer's and sometimes he feels like it gets the best of him. He tells me he does not necessarily think somebody is out to get him he just is uncertain of things all the time. He denies any recent trauma however police are concerned about an abrasion on the posterior scalp. Patient states that his girlfriend Ronel takes care of all of his medications and make sure he gets them on time. His primary care is Dr. Lagunas. Patient denies any acute medical needs at this time. Patient was consulted to me for second opinion. On psychiatric evaluation today the patient Patient is diffusely confused disoriented but able to shows some focus of conversation. He reports feeling much better today, even though the patient could not tell me the reason he is hospitalized. The patient denies suicidal enemas ideation, he denies visual and auditory hallucinations. No behavioral dislocation has been reported in the last 24 hours. [facility] - History History Provided By: Patient - Medical History Medical History: Medical History (Last Reviewed 08/26/17 @ 07:33 by Eliazar Pyle) Alzheimer's dementia Esophagitis Hypertension - Surgical History Surgical History: Surgical History (Last Reviewed 08/26/17 @ 07:33 by Eliazar Pyle) No history of previous surgery - Family History Family History: Family History (Last Reviewed 08/25/17 @ 19:13 by Argentina Moralez RN) Other Family history reviewed with no changes - Tobacco History Second Hand Smoke Exposure: No Tobacco Use In Past 30 Days: No Smoking Status: Former smoker Smoking End Date: - Alcohol History How Often Do You Have a Drink Containing Alcohol: Monthly or less - Substance Use History Substance History: No History of Abuse - Substance Use Type Alcohol Route Used: By Mouth Frequency: 1 or 2 beers per month Reason for Use: Feels Good - Travel History Recent Travel in the [place] Within the Last 8 Weeks: No Recent Travel Out of the Country Within the Last 8 Weeks: No - Immunization History Tetanus Immunization: Unable to Assess Hx Influenza Vaccine This Season: Unable to Assess Medications and Allergies Active Medications: Active Medications Acetaminophen (Tylenol) 650 mg PO Q4H PRN PRN Reason: Pain 1-5 or Temp >101F Al Hydrox/Mg Hydrox/Simethicone (Mag-Al Plus Susp Liq) 30 ml PO Q6H PRN PRN Reason: DYSPEPSIA Amlodipine Besylate (Norvasc) 5 mg PO DAILY [facility] Last Admin: 08/26/17 08:48 Dose: 5 mg Benzonatate (Tessalon Perles) 200 mg PO TID PRN PRN Reason: Cough Last Admin: 08/24/17 16:37 Dose: 200 mg Bisacodyl (Dulcolax Supp) 10 mg RECTAL DAILY PRN PRN Reason: SEVERE CONSITIPATION Cetirizine HCl (Zyrtec) 10 mg PO DAILY [facility] Last Admin: 08/26/17 08:48 Dose: 10 mg Diphenhydramine HCl (Benadryl) 50 mg PO HS PRN PRN Reason: INSOMNIA Hydroxyzine HCl (Atarax) 50 mg PO Q6H PRN PRN Reason: ANXIETY Lactulose (Lactulose Liq) 30 ml PO DAILY PRN PRN Reason: SEVERE CONSITIPATION Last Admin: 08/26/17 08:48 Dose: 30 ml Levofloxacin (Levaquin) 500 mg PO DAILY [facility] Stop: 08/27/17 09:01 Last Admin: 08/26/17 08:48 Dose: 500 mg Montelukast Sodium (Singulair) 10 mg PO HS [facility] Last Admin: 08/25/17 20:29 Dose: 10 mg Pantoprazole Sodium (Protonix) 20 mg PO DAILY [facility] Last Admin: 08/26/17 08:48 Dose: 20 mg Quetiapine Fumarate (Seroquel) 25 mg PO TID [facility] Last Admin: 08/26/17 13:10 Dose: 25 mg Senna/Docusate Sodium (Holly-Colace) 1 tab PO BID [facility] Last Admin: 08/26/17 08:48 Dose: 1 tab Sennosides (Senokot) 17.2 mg PO Q12H PRN PRN Reason: Moderate Constipation Allergies Allergy/AdvReac Type Severity Reaction Status Date / Time No Known Allergies Allergy Unknown Uncoded 08/19/17 12:58 Home Medications Medication Instructions Recorded Confirmed Type benzonatate 200 mg PO TID PRN 08/20/17 08/24/17 History cetirizine 10 mg PO DAILY 08/20/17 08/24/17 History donepezil 10 mg PO HS 08/20/17 08/24/17 History montelukast 10 mg PO HS 08/20/17 08/24/17 History Exam Vital signs: Vital Signs 08/25/17 16:57 08/26/17 06:19 08/26/17 06:20 Temperature 98.0 F 97.9 F 97.9 F Pulse Rate 81 73 73 Respiratory Rate 18 18 Blood Pressure 123/72 133/73 133/73 Pulse Oximetry 100 95 95 Intake & Output 08/25/17 08/26/17 08/26/17 18:59 06:59 18:59 Intake Total 440 / 440 Balance 440 / 440 Intake: Oral 440 / 440 Other: Date of Last Bowel Movement 08/22/17 08/22/17 08/22/17 Mental Status Examination Appearance: Appropriate Consciousness: Alert Orientation: Person, Place (Quite vague), Date/Time (Quite vague), Situation ( Quite vague) Motor Activity: Other (seated on bed) Speech: Unremarkable Language: Adequate Fund of Knowledge: Poor Attention and Concentration: Inadequate Memory: Impaired Mood: Other (Euthymic to mildly irritable) Affect: Other (Slight increased range and intensity) Thought Process & Associations: Disorganized Thought Content: Delusional Hallucination Type: None (Denies) Delusion Type: Paranoid Suicidal Ideation: No (Denies at this time) Suicidal Plan: No Suicidal Intention: No Homicidal Ideation: No (Denies at this time) Homicidal Plan: No Homicidal Intention: No Insight: Poor Judgment: Poor Assessment and Plan - Assessment (1) Dementia in other diseases classified elsewhere with behavioral disturbance Code(s): F02.81 - Dementia in other diseases classified elsewhere with behavioral disturbance Status: Acute (2) Alzheimer's disease with late onset Code(s): G30.1 - Alzheimer's disease with late onset; F02.80 - Dementia in other diseases classified elsewhere without behavioral disturbance Status: Acute - Plan Plan: I have seen and examined this patient, reviewed, patient, I agree and concur with Dr. Antunez's assessment and plan. Justification for Continued Inpatient Stay: Patient will continue psychiatric hospitalization Request Healthcare Surrogate/Guardian Advocate?: Yes (2) Alzheimer's disease with late onset Qualifiers: Dementia behavioral disturbance: with behavioral disturbance Qualified Code(s ): G30.1 - Alzheimer's disease with late onset; F02.81 - Dementia in other diseases classified elsewhere with behavioral disturbance
[2017-08-26] MEDS: Montelukast 10 MG Tablet PO SCH (20:58)
[2017-08-27] MEDS: Pantoprazole Sodium 20 MG DR Tablet PO SCH (08:48)
[2017-08-27] MEDS: levoFLOXacin 500 MG Tablet PO SCH (08:48)
[2017-08-27] MEDS: amLODIPine 5 MG Tablet PO SCH (08:48)
[2017-08-27] MEDS: QUEtiapine 25 MG Tablet PO SCH ×3 (08:49→17:57)
[2017-08-27] MEDS: Senna/Docusate Sodium 8.6/50 MG Tablet PO SCH ×2 (08:49→20:29)
[2017-08-27] MEDS: Polyethylene Glycol 3350 17 GM Packet PO SCH (09:46)
--- NOTE | 2017-08-27 17:16 | P.PNPSY ---
Subjective Chief Complaint: Dementia with aggressive behavior Remarks: Pt seen and discussed with staff. Pt has been cooperative and compliant with medications. No aggression or agitation today. He has been participating in unit activities. No SI/HI He expresses paranoia towards and states that he thinks she is plotting against him and his family. Mental Status Examination Appearance: Appropriate Consciousness: Alert Orientation: Person, Place (Quite vague), Date/Time (Quite vague), Situation ( Quite vague) Motor Activity: Other (seated on bed) Speech: Unremarkable Language: Adequate Fund of Knowledge: Poor Attention and Concentration: Inadequate Memory: Impaired Mood: Other (Euthymic to mildly irritable) Affect: Other (Slight increased range and intensity) Thought Process & Associations: Loose associations Thought Content: Delusional Hallucination Type: None (Denies) Delusion Type: Paranoid Suicidal Ideation: No (Denies at this time) Suicidal Plan: No Suicidal Intention: No Homicidal Ideation: No (Denies at this time) Homicidal Plan: No Homicidal Intention: No Insight: Poor Judgment: Poor Assessment and Plan - Assessment (1) Dementia in other diseases classified elsewhere with behavioral disturbance Code(s): F02.81 - Dementia in other diseases classified elsewhere with behavioral disturbance Status: Acute (2) Alzheimer's disease with late onset Code(s): G30.1 - Alzheimer's disease with late onset; F02.80 - Dementia in other diseases classified elsewhere without behavioral disturbance Status: Acute - Plan Plan: Continue current tx plan Justification for Continued Inpatient Stay: risk of decompensation Request Healthcare Surrogate/Guardian Advocate?: Yes (2) Alzheimer's disease with late onset Qualifiers: Dementia behavioral disturbance: with behavioral disturbance Qualified Code(s ): G30.1 - Alzheimer's disease with late onset; F02.81 - Dementia in other diseases classified elsewhere with behavioral disturbance
[2017-08-27] MEDS: Montelukast 10 MG Tablet PO SCH (20:29)
[2017-08-28] MEDS: QUEtiapine 25 MG Tablet PO SCH ×3 (08:26→17:46)
[2017-08-28] MEDS: amLODIPine 5 MG Tablet PO SCH (08:26)
[2017-08-28] MEDS: Pantoprazole Sodium 20 MG DR Tablet PO SCH (08:26)
[2017-08-28] MEDS: Benzonatate 100 MG Capsule PO PRN ×2 (08:26→20:47)
[2017-08-28] MEDS: Senna/Docusate Sodium 8.6/50 MG Tablet PO SCH ×2 (08:26→20:47)
[2017-08-28] MEDS: Polyethylene Glycol 3350 17 GM Packet PO SCH (08:27)
--- NOTE | 2017-08-28 13:21 | P.PNPSY ---
Subjective Chief Complaint: Dementia with aggressive behavior Remarks: Pt seen and discussed with staff. He has been confused but redirectable. He has been cooperative with care. He told RN that he never wanted to see his again because she is telling lies. He slept well and appetite is good. Mental Status Examination Appearance: Appropriate Consciousness: Alert Orientation: Person, Place (Quite vague), Date/Time (Quite vague), Situation ( Quite vague) Motor Activity: Other (seated on bed) Speech: Unremarkable Language: Adequate Fund of Knowledge: Poor Attention and Concentration: Inadequate Memory: Impaired Mood: Other (Euthymic to mildly irritable) Affect: Other (Slight increased range and intensity) Thought Process & Associations: Loose associations Thought Content: Delusional Hallucination Type: None (Denies) Delusion Type: Paranoid Suicidal Ideation: No (Denies at this time) Suicidal Plan: No Suicidal Intention: No Homicidal Ideation: No (Denies at this time) Homicidal Plan: No Homicidal Intention: No Insight: Poor Judgment: Poor Assessment and Plan - Assessment (1) Dementia in other diseases classified elsewhere with behavioral disturbance Code(s): F02.81 - Dementia in other diseases classified elsewhere with behavioral disturbance Status: Acute (2) Alzheimer's disease with late onset Code(s): G30.1 - Alzheimer's disease with late onset; F02.80 - Dementia in other diseases classified elsewhere without behavioral disturbance Status: Acute - Plan Plan: Continue current tx plan Justification for Continued Inpatient Stay: risk of decompensation Request Healthcare Surrogate/Guardian Advocate?: Yes (2) Alzheimer's disease with late onset Qualifiers: Dementia behavioral disturbance: with behavioral disturbance Qualified Code(s ): G30.1 - Alzheimer's disease with late onset; F02.81 - Dementia in other diseases classified elsewhere with behavioral disturbance
[2017-08-28] MEDS: Montelukast 10 MG Tablet PO SCH (20:47)
[2017-08-29] MEDS: Benzonatate 100 MG Capsule PO PRN (08:46)
[2017-08-29] MEDS: Senna/Docusate Sodium 8.6/50 MG Tablet PO SCH ×2 (08:46→20:44)
[2017-08-29] MEDS: Pantoprazole Sodium 20 MG DR Tablet PO SCH (08:46)
[2017-08-29] MEDS: QUEtiapine 25 MG Tablet PO SCH (08:46)
[2017-08-29] MEDS: amLODIPine 5 MG Tablet PO SCH (08:46)
[2017-08-29] MEDS: Polyethylene Glycol 3350 17 GM Packet PO SCH (08:47)
--- NOTE | 2017-08-29 11:48 | P.PNPSY ---
Subjective Chief Complaint: Dementia with aggressive behavior Remarks: Patient seen and bailey with nurse Argentina, patient continues diffusely confused disoriented appears she does wish to return home upon discharge but becomes quite tangential and circumstantial about the circumstances. He seems to have some intermittent ambivalent feelings concerning his significant other, and he, he is otherwise been no behavior problems on the unit he is compliant with his medications there is been no behavioral problems. Review of Systems All other systems reviewed negative except as stated in HPI Mental Status Examination Appearance: Appropriate Consciousness: Alert Orientation: Person, Place (Quite vague), Date/Time (Quite vague), Situation ( Quite vague) Motor Activity: Other (seated on bed) Speech: Unremarkable Language: Adequate Fund of Knowledge: Poor Attention and Concentration: Inadequate Memory: Impaired Mood: Other (Euthymic to mildly irritable) Affect: Other (Slight increased range and intensity) Thought Process & Associations: Loose associations Thought Content: Delusional Hallucination Type: None (Denies) Delusion Type: Paranoid Suicidal Ideation: No (Denies at this time) Suicidal Plan: No Suicidal Intention: No Homicidal Ideation: No (Denies at this time) Homicidal Plan: No Homicidal Intention: No Insight: Poor Judgment: Poor Assessment and Plan - Assessment (1) Dementia in other diseases classified elsewhere with behavioral disturbance Code(s): F02.81 - Dementia in other diseases classified elsewhere with behavioral disturbance Status: Acute (2) Alzheimer's disease with late onset Code(s): G30.1 - Alzheimer's disease with late onset; F02.80 - Dementia in other diseases classified elsewhere without behavioral disturbance Status: Acute - Plan Plan: Patient remains confused and disorganized demented, the low behavioral problems. We will ask staff to treatment patient's nails and help him to shave. For now continue medications no change Justification for Continued Inpatient Stay: This time patient would decompensate a place to the lower level of care Discharge Planning: To be determined Request Healthcare Surrogate/Guardian Advocate?: Yes (2) Alzheimer's disease with late onset Qualifiers: Dementia behavioral disturbance: with behavioral disturbance Qualified Code(s ): G30.1 - Alzheimer's disease with late onset; F02.81 - Dementia in other diseases classified elsewhere with behavioral disturbance
[2017-08-29] MEDS: Montelukast 10 MG Tablet PO SCH (20:44)
[2017-08-30] MEDS: Benzonatate 100 MG Capsule PO PRN (08:48)
[2017-08-30] MEDS: Senna/Docusate Sodium 8.6/50 MG Tablet PO SCH ×2 (08:48→20:32)
[2017-08-30] MEDS: QUEtiapine 25 MG Tablet PO SCH ×3 (08:48→17:32)
[2017-08-30] MEDS: Polyethylene Glycol 3350 17 GM Packet PO SCH (08:48)
[2017-08-30] MEDS: Pantoprazole Sodium 20 MG DR Tablet PO SCH (08:49)
[2017-08-30] MEDS: amLODIPine 5 MG Tablet PO SCH (08:49)
--- NOTE | 2017-08-30 11:28 | P.PNPSY ---
Subjective Chief Complaint: Dementia with aggressive behavior Remarks: Patient seen in his room with nurse Argentina, chart reviewed, patient complaint medications, patient discussed with nurse. Patient continues the somewhat focused on his finances, he continues somewhat confused about his relationship with his long time girlfriend. He denies suicidality voices or visions. For now continue treatment. We will continue to look at various placement options Review of Systems All other systems reviewed negative except as stated in HPI Mental Status Examination Appearance: Appropriate Consciousness: Alert Orientation: Person, Place (Quite vague), Date/Time (Quite vague), Situation ( Quite vague) Motor Activity: Other (seated on bed) Speech: Unremarkable Language: Adequate Fund of Knowledge: Poor Attention and Concentration: Inadequate Memory: Impaired Mood: Other (Euthymic to mildly irritable) Affect: Other (Slight increased range and intensity) Thought Process & Associations: Loose associations Thought Content: Delusional Hallucination Type: None (Denies) Delusion Type: Paranoid Suicidal Ideation: No (Denies at this time) Suicidal Plan: No Suicidal Intention: No Homicidal Ideation: No (Denies at this time) Homicidal Plan: No Homicidal Intention: No Insight: Poor Judgment: Poor Assessment and Plan - Assessment (1) Dementia in other diseases classified elsewhere with behavioral disturbance Code(s): F02.81 - Dementia in other diseases classified elsewhere with behavioral disturbance Status: Acute (2) Alzheimer's disease with late onset Code(s): G30.1 - Alzheimer's disease with late onset; F02.80 - Dementia in other diseases classified elsewhere without behavioral disturbance Status: Acute - Plan Plan: Patient continues somewhat diffusely confused though does allude to do well. He is showing some increased concern perhaps anxiety related to relationship with his longtime girlfriend. He did continue to work with that and work with placement issues Justification for Continued Inpatient Stay: At this time patient would decompensate a place to a lower level of care Discharge Planning: To be determined Request Healthcare Surrogate/Guardian Advocate?: Yes (2) Alzheimer's disease with late onset Qualifiers: Dementia behavioral disturbance: with behavioral disturbance Qualified Code(s ): G30.1 - Alzheimer's disease with late onset; F02.81 - Dementia in other diseases classified elsewhere with behavioral disturbance
[2017-08-30] MEDS: Montelukast 10 MG Tablet PO SCH (20:32)
[2017-08-31 06:21] VITALS: RESP 18
[2017-08-31] MEDS: amLODIPine 5 MG Tablet PO SCH (08:04)
[2017-08-31] MEDS: Senna/Docusate Sodium 8.6/50 MG Tablet PO SCH ×2 (09:05→20:44)
[2017-08-31] MEDS: Pantoprazole Sodium 20 MG DR Tablet PO SCH (09:05)
[2017-08-31] MEDS: QUEtiapine 25 MG Tablet PO SCH ×4 (09:05→17:02)
[2017-08-31] MEDS: Polyethylene Glycol 3350 17 GM Packet PO SCH (09:05)
--- NOTE | 2017-08-31 13:02 | P.PNPSY ---
Subjective Chief Complaint: Dementia with aggressive behavior Remarks: Patient seen in day room with nurse Vora, patient alert diffusely confused though no behavior problems. He is still somewhat confused conflictual related to placement issues and his feelings towards his longtime girlfriend. It appears that close to getting a bed placement [facility] although the girlfriend needs to finalize some financial issues. Patient appears somewhat reluctant but willing to do this Review of Systems All other systems reviewed negative except as stated in HPI Mental Status Examination Appearance: Appropriate Consciousness: Alert Orientation: Person, Place (Quite vague), Date/Time (Quite vague), Situation ( Quite vague) Motor Activity: Other (seated on bed) Speech: Unremarkable Language: Adequate Fund of Knowledge: Poor Attention and Concentration: Inadequate Memory: Impaired Mood: Other (Euthymic to mildly irritable) Affect: Other (Slight increased range and intensity) Thought Process & Associations: Loose associations Thought Content: Delusional Hallucination Type: None (Denies) Delusion Type: Paranoid Suicidal Ideation: No (Denies at this time) Suicidal Plan: No Suicidal Intention: No Homicidal Ideation: No (Denies at this time) Homicidal Plan: No Homicidal Intention: No Insight: Poor Judgment: Poor Assessment and Plan - Assessment (1) Dementia in other diseases classified elsewhere with behavioral disturbance Code(s): F02.81 - Dementia in other diseases classified elsewhere with behavioral disturbance Status: Acute (2) Alzheimer's disease with late onset Code(s): G30.1 - Alzheimer's disease with late onset; F02.80 - Dementia in other diseases classified elsewhere without behavioral disturbance Status: Acute - Plan Plan: Patient continues somewhat confused disoriented though overall mood behavior problems, still some confusion related to relationship with his longtime girlfriend. Placement issues are being worked on with the girlfriend Justification for Continued Inpatient Stay: At this time patient may decompensate if not placed in an appropriate level of care Discharge Planning: To be determined Request Healthcare Surrogate/Guardian Advocate?: Yes (2) Alzheimer's disease with late onset Qualifiers: Dementia behavioral disturbance: with behavioral disturbance Qualified Code(s ): G30.1 - Alzheimer's disease with late onset; F02.81 - Dementia in other diseases classified elsewhere with behavioral disturbance
[2017-08-31] MEDS: Benzonatate 100 MG Capsule PO PRN (17:02)
[2017-08-31] MEDS: Montelukast 10 MG Tablet PO SCH (20:44)
[2017-09-01 06:17] VITALS: BP 129/72; PULSE 78; TEMP 97.7; O2SAT 96
[2017-09-01] MEDS: Polyethylene Glycol 3350 17 GM Packet PO SCH (08:14)
[2017-09-01] MEDS: amLODIPine 5 MG Tablet PO SCH (08:14)
[2017-09-01] MEDS: Pantoprazole Sodium 20 MG DR Tablet PO SCH (08:14)
[2017-09-01] MEDS: Senna/Docusate Sodium 8.6/50 MG Tablet PO SCH (08:14)
[2017-09-01] MEDS: QUEtiapine 25 MG Tablet PO SCH (08:14)
--- NOTE | 2017-09-01 09:46 | P.DSPSY ---
Psychiatry Discharge Summary Inpatient Psychiatric care?: Yes Advance Directives: Yes Mental Health Advance Directive: Yes Health Care Proxy: Yes - Admission Admission Date: August 24, 2017 13:02 - Admission Diagnosis (1) Alzheimer's dementia with behavioral disturbance Code(s): G30.9 - Alzheimer's disease, unspecified; F02.81 - Dementia in other diseases classified elsewhere with behavioral disturbance (2) Dementia in other diseases classified elsewhere with behavioral disturbance Code(s): F02.81 - Dementia in other diseases classified elsewhere with behavioral disturbance Brief History: Patient is an 81-year-old white male comes here under a Shirley act by the [facility]'s office dated 08/24/2017 at 12:18 AM that document is reviewed and agreed with basically stating that she looks Scissors in his pocket due to the fact that he is afraid is going to get stay also felt that his long-term girlfriend was planning on harming him or causing his he stated that he does not plan to get stabbed but plans to stab first did acknowledge she had Alzheimer's disease and having difficulty with his long-term and short-term memory thinking that his is up to no good that she is making phone calls to "set him up and also made statements that he is feeling uncomfortable to be in the residence because he is not capable of understanding what is going on. Patient's girlfriend states these behaviors to be getting worse every night for the past 4 or 5 nights he is refusing to take his medication that he is to the point with a new neurologist soon it appears the patient has had prior contact here he does not remember very well. Patient seen screen in the ED medically cleared at the present time patient sitting quietly in his room RN present throughout session. Patient is alert white male appears his stated age somewhat diffusely disorganized though he does not know he is in the hospital though is vague about the name of [place] it is [place], it is 2020 initially was August 24. There is some confabulation and approximations with his speech. He denies suicidality homicidality voices or visions. He denies any prior psychiatric contact hospitalization psychotropic medication. Denies any significant alcohol or drug use. Denies smoking. Incision was made in the distant past lift her very contentious divorce with he being ostracized by his and his adult daughter. Patient is living at this lady named Thelma for the past 30 years they seem to have a good relationship of patient at this time shows marked paranoia related to her claiming that she is very controlling and that he just has to acquiesce to her desires. In any event at the present time patient does meet criteria for involuntary psychiatric hospitalization under the Shirley act I will do first opinion request second opinion I also feel he does not have capacity I will ask for health care surrogate and guardian advocate. We will have hospitalist consult will us also along with PT and OT. We will continue medications per the med reconciliation hopeless be fairly short stay and patient can return to his home with his significant other Tobacco Use In Past 30 Days: No How Often Do You Have a Drink Containing Alcohol: Monthly or less Hospital Course: Patient's hospital course was uneventful, he showed no significant behavioral problems, his cognitive deficits persisted throughout. He was at times somewhat intense and intrusive but redirectable. He showed minimal insight into his behaviors at home. Her conversations with patient's longtime girlfriend who acknowledged her fear of him returning to live at home due to his aggressive behavior. Thus patient will be discharged today to [facility]. He denies suicidality homicidality voice or visions, has been compliant with his medications will follow-up services through that facility - Discharge Discharge Date: 09/01/17 - Discharge Diagnosis (1) Alzheimer's dementia with behavioral disturbance Diagnosis: Principal Code(s): G30.9 - Alzheimer's disease, unspecified; F02.81 - Dementia in other diseases classified elsewhere with behavioral disturbance Status: Acute (2) Dementia in other diseases classified elsewhere with behavioral disturbance Diagnosis: Principal Code(s): F02.81 - Dementia in other diseases classified elsewhere with behavioral disturbance Status: Acute Discharge Disposition: Home - Discharge Instructions Discharge Diet: Regular Diet Activities You Can Perform: Regular- No Restrictions - Discharge Time > 30 minutes Mental Status Examination Appearance: Appropriate Consciousness: Alert Orientation: Person, Place (Quite vague), Date/Time (Quite vague), Situation ( Quite vague) Motor Activity: Other (seated on bed) Speech: Unremarkable Language: Adequate Fund of Knowledge: Poor Attention and Concentration: Inadequate Memory: Impaired Mood: Other (Euthymic to mildly irritable) Affect: Other (Slight increased range and intensity) Thought Process & Associations: Loose associations Thought Content: Delusional Hallucination Type: None (Denies) Delusion Type: Paranoid Suicidal Ideation: No (Denies at this time) Suicidal Plan: No Suicidal Intention: No Homicidal Ideation: No (Denies at this time) Homicidal Plan: No Homicidal Intention: No Insight: Poor Judgment: Poor Discharge/Advance Care Plan - Results Vital Signs: Last Vital Signs Temp 97.7 F 09/01/17 06:00 Pulse 78 09/01/17 06:00 Resp 18 09/01/17 06:00 BP 129/72 09/01/17 06:00 Pulse Ox 96 09/01/17 06:00 Lab Results: Laboratory Results Hemoglobin A1c 5.0 % (4.3-6.0) 08/25/17 10:03 Triglycerides 159 mg/dL (42-150) H 08/25/17 10:03 Cholesterol 155 mg/dL (120-200) 08/25/17 10:03 LDL Cholesterol, Calc 81 mg/dL (0-99) 08/25/17 10:03 HDL Cholesterol 42.6 mg/dL (40.0-60.0) 08/25/17 10:03 TSH 0.801 uIU/mL (0.358-3.740) 08/24/17 01:16 Summary of Procedures: None done Imaging: ITS Impressions Head CT 08/24/17 01:09 CONCLUSION: 1. Moderate atrophy. 2. No acute findings in the brain. Pending Results: None - Medications Number of antipsychotic medications at discharge: 1 - Discharge Care Plan Goals to Promote Your Health: * To prevent worsening of your condition and complications * To maintain your health at the optimal level Directions to Meet Your Goals: Take your medications as prescribed Follow your dietary instruction Follow activity as directed Keep your appointments as scheduled Take your immunizations and boosters as scheduled If your symptoms worsen call your PCP, if no PCP go to Urgent Care Center or Emergency Room For 13/09 questions related to your inpatient stay or results of tests pending at discharge, please contact Dr. Juan Carlos Antunez MD at Smoking is Dangerous to Your Health. Avoid second hand smoking
== END 2017-09-01 12:30 ==
LOC: NEDAMB 00:25 → NEDA 13:02 → H250 13:10 → NEDA 14:25 → H250 14:54
PROVIDERS: ADMIT Psychiatry & Neurology Psychiatry; ATTEND Psychiatry & Neurology Psychiatry